=== PATIENT | male | born 1960 | race Caucasian/White ===

== ENCOUNTER 2017-02-11 13:35 | Emergency (ER) | payer BC ==
[2017-02-11] MEDS ORDERED: Lidocaine 2% with EPINEPHrine 1:200,000 20 ML SDV ONE (13:55)
[2017-02-11] MEDS ORDERED: Lidocaine 2% with EPINEPHrine 1:200,000 20 ML SDV INFILT ONE (14:00)
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
[2017-02-11 15:14] VITALS: BP 117/75
== END 2017-02-11 14:35 | disposition home or self-care (01) ==
LOC: KA.ED 13:35
DX: S01.01XA Laceration without foreign body of scalp, initial encounter (principal); W26.8XXA Contact with other sharp object(s), not elsewhere classified, initial encounter; Y99.0 Civilian activity done for income or pay
CPT/HCPCS: 12002; 99283